=== PATIENT | female | born 1995 | race Caucasian/White ===

== ENCOUNTER 2020-03-16 17:39 | Inpatient (IN) ==
[2020-03-16] MEDS ORDERED: ONDANSETRON 4 MG TAB.RAPDIS PO PRN (18:17)
[2020-03-16] MEDS ORDERED: LIDOCAINE HCL 50 ML VIAL PERI PRN (18:17)
[2020-03-16] MEDS ORDERED: RINGER'S SOLUTION,LACTATED 1,000 ML IV ONE (18:17)
[2020-03-16] MEDS ORDERED: BUTORPHANOL TARTRATE 2 MG/ML VIAL IV PRN ×2 (18:17)
[2020-03-16] MEDS ORDERED: OXYTOCIN/0.9 % SODIUM CHLORIDE 30 UNITS/500 ML BAG IV ONE (18:17)
[2020-03-16] MEDS ORDERED: RINGER'S SOLUTION,LACTATED 1,000 ML IV PRN (18:17)
[2020-03-16] MEDS ORDERED: HYDROCORTISONE 30 APPL TUBE TP PRN (19:38)
[2020-03-16] MEDS: MISOPROSTOL 100 MCG TABLET VG PRN (19:58)
[2020-03-17] MEDS: MISOPROSTOL 100 MCG TABLET VG PRN (00:35)
[2020-03-17] MEDS ORDERED: INSULIN NPH HUMAN ISOPHANE 100 UNITS/ML VIAL ONE (00:59)
[2020-03-17] MEDS ORDERED: ONDANSETRON HCL/PF 2 MG/ML VIAL IV PRN ×2 (07:07→07:15)
[2020-03-17] MEDS ORDERED: NALOXONE HCL 1 MG/1 ML SYRG IV PRN ×2 (07:07→07:15)
[2020-03-17] MEDS ORDERED: BUPIVACAINE HCL/0.9 % NACL/PF 250 ML EP PRN ×2 (07:07→07:15)
[2020-03-17] MEDS ORDERED: fentaNYL CITRATE/PF 50 MCG/ML AMPUL IT SCH ×2 (07:15)
--- NOTE | 2020-03-17 07:26 | ANES ---
Anesthesia Pre Procedure Eval Vitals/Labs: Last Vital Signs Temp 36.3 C 03/16/20 20:42 Pulse 95 03/16/20 20:42 Resp 18 03/16/20 20:42 BP 117/58 03/16/20 20:42 Pulse Ox 97 03/16/20 20:42 HOME MEDICATIONS acetaminophen 325 mg capsule 325 mg PO Q6H PRN 07/30/19 [Last Taken Unknown] prenat.vits,willi,xqj-hadd-rwdqx 1 tab PO DAILY 09/29/19 [Last Taken Unknown] blood sugar diagnostic See Rx Instructions .ROUTE .MEDSUPPLY #100 ea 11/27/19 [Last Taken Unknown] blood-glucose meter See Rx Instructions .ROUTE .MEDSUPPLY #1 ea 11/27/19 [Last Taken Unknown] lancets 28 gauge See Rx Instructions .ROUTE .MEDSUPPLY #100 ea 11/27/19 [Last Taken Unknown] insulin syringe-needle U-100 1 mL 31 gauge x 5/16" See Rx Instructions [id number] .MEDSUPPLY #100 ea 12/30/19 [Last Taken Unknown] insulin NPH isoph U-100 human 100 unit/mL subcutaneous suspension 28 unit SUBCUT QPM ml 02/15/20 [Last Taken Unknown] clobetasol 0.05 % topical ointment 1 g TP TID #45 g 03/03/20 [Last Taken Unknown] Allergies/Adverse Reactions: Allergies Allergy/AdvReac Type Severity Reaction Status Date / Time No Known Allergies Allergy Verified 03/16/20 18:18 - Planned Procedure Planned Procedure: MEDICAL INDUCTION Medication List Reviewed:: Yes Allergies Verified: Yes Medical History (Last Reviewed 03/17/20 @ 07:25 by Amanuel Rodney CRNA) Anxiety Onset Date: ~2015 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, benign-removed 2011 Depression Onset Date: ~2015 GERD (gastroesophageal reflux disease) Onset Date: Unknown Gestational diabetes Onset Date: ~11/27/19 History of gestational diabetes Onset Date: ~2017 Ingrown toenail of both feet Onset Date: Unknown Migraines Onset Date: ~2015 Surgical History (Last Reviewed 03/17/20 @ 07:25 by Amanuel Rodney CRNA) No history of previous surgery Family History (Last Reviewed 03/17/20 @ 07:25 by Amanuel Rodney CRNA) Mother Alive and well Father Hypertension - Family Anesthesia History Family History:: no untoward family reactions to anesthesia, no familial bleeding tendencies, no family history of clotting disorders, no family history of premature - Airway/Neck/Teeth Within Normal Limits:: Yes Teeth Condition: intact Mallampatti Score: 2 Thyromental (T-M) distance: > 6 cm Mandibulo Hyoid distance: > 3 cm - Respiratory Respiratory Physical: lungs clear Sleep Apnea currently treated: No Sleep Apnea by current assessment: No - Cardiovascular Tolerate Activity: Fair Heart Sounds: S1 & S2, Regular - Gastrointestinal NPO since: 0 - Anesthesia Assessment and Plan ASA Class: PS, II, E Anesthesia Type Plan: Epidural - CSE for labor analgesia
--- NOTE | 2020-03-17 07:46 | ANES ---
Anesthesia Procedure Note Procedure Note: ANESTHESIA PROCEDURE NOTE Date of Procedure: 01/15/2021 Time of procedure: 7:25 AM. Performed by: BROOKLYN Dockery CRNA, MSN Bacteriologist Industrial: []. Preprocedure diagnosis: Active labor, labor pain. Post procedure diagnosis: Same. Procedure:Epidural for labor analgesia L3-4. Indications: Labor pain. Findings: See below. Details of the procedure: The patient was placed on the side of the bed in sitting positionand prepped with DuraPrep then draped in a sterile fashion. Lidocaine 1% was infiltrated to the skin and subcutaneous tissues at the level of the L3-4 interspace. An 18-gauge Touhy needle was used to approach the epidural space with loss of resistance technique. Once loss of resistance was achieved a 27-gauge spinal needle was passed through the epidural needle and CSF was contacted. After CSF returned, 20 mcg of fentanyl was injected in the spinal needle was removed the epidural catheter was then threaded approximately 4 cm in the epidural needle was removed. The catheter was taped in place and after careful aspiration 3 mL of 1.5% lidocaine with 1-200,000 epinephrine was injected without change in maternal heart rate or sensorium. . EBL: Minimal. Fluids: N/A. Specimen: N/A. Post procedure condition: The patient tolerated the procedure well with good relief. No complications were noted. Thank you for this consultation. Amanuel Rodney CRNA, ARNP, MSN
--- NOTE | 2020-03-17 07:47 | ANES ---
Post Anesthesia Discharge - Transfer of Care Transfer of Care handoff given to nurse: Yes - Discharge from PACU Discharge from PACU when meets criteria: Yes - Comfortable post CSE.
--- NOTE | 2020-03-17 08:04 | HP ---
Chief Complaint - Chief Complaint Date of Service: 03/17/20 Time of Service: 07:54 Chief Complaint: Labor induction History of Present Illness: 24 year old at 39w 1d who presented to L&D for a medical IOL. She denies vb or lof. She is not currently feeling her ctx s/p epidural placement. Fetus is active. 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, benign-removed 2011 Depression Onset Date: ~2015 GERD (gastroesophageal reflux disease) Onset Date: Unknown Gestational diabetes Onset Date: ~11/27/19 History of gestational diabetes Onset Date: ~2017 Ingrown toenail of both feet Onset Date: Unknown Migraines Onset Date: ~2015 Surgical History: Surgical History (Last Reviewed 03/17/20 @ 07:56 by Bessy Bailey MD) No history of previous surgery Family History: Family History (Last Reviewed 03/17/20 @ 07:56 by Bessy Bailey MD) Mother Alive and well Father Hypertension Social History: (Last Reviewed 03/17/20 @ 07:56 by Bessy Bailey MD) Social History: Marital status: Single household members: significant other current occupational status: employed current occupation: [employer] current occupational exposures/hazards: No Service: No Tobacco: Smoking Status: Never smoker Alcohol: alcohol intake: former details: none since LMP Substance Use: substance use type: does not use Dietary Habits: caffeine: Yes caffeine comment: 1 weekly Type: carbonated beverages Review Of Systems (GEN) - Review of Systems Generalized/Overall Review: Present: No Symptoms Reported Misc: All systems neg except as marked Allergies/Adverse Reactions: Allergies Allergy/AdvReac Type Severity Reaction Status Date / Time No Known Allergies Allergy Verified 03/16/20 18:18 Home Medications: HOME MEDICATIONS acetaminophen 325 mg capsule 325 mg PO Q6H PRN 07/30/19 [Last Taken Unknown] prenat.vits,willi,ulc-inlm-rxmvo 1 tab PO DAILY 09/29/19 [Last Taken Unknown] blood sugar diagnostic See Rx Instructions .ROUTE .MEDSUPPLY #100 ea 11/27/19 [Last Taken Unknown] blood-glucose meter See Rx Instructions .ROUTE .MEDSUPPLY #1 ea 11/27/19 [Last Taken Unknown] lancets 28 gauge See Rx Instructions .ROUTE .MEDSUPPLY #100 ea 11/27/19 [Last Taken Unknown] insulin syringe-needle U-100 1 mL 31 gauge x 07/17" See Rx Instructions [id number] .MEDSUPPLY #100 ea 12/30/19 [Last Taken Unknown] insulin NPH isoph U-100 human 100 unit/mL subcutaneous suspension 28 unit SUBCUT QPM ml 02/15/20 [Last Taken Unknown] clobetasol 0.05 % topical ointment 1 g TP TID #45 g 03/03/20 [Last Taken Unknown] Exam - Exam Vital Signs: Vital Signs - Last Taken Temp 36.3 C 03/16/20 20:42 Pulse 95 03/16/20 20:42 Resp 18 03/16/20 20:42 BP 117/58 03/16/20 20:42 Pulse Ox 97 03/16/20 20:42 Constitutional: Present: Alert, Oriented x3, Cooperative, No distress ENT Exam: Present: hearing grossly normal Eye Exam: bilateral eye: normal inspection Neck: Present: normal inspection Back Exam: Present: normal inspection Breasts: Present: Exam deferred Respiratory: Present: lungs clear, normal breath sounds, no respiratory distress Cardiovascular/Chest: Present: regular rate, rhythm Abdomen: Present: soft, nontender, nondistended /Rectal: Present: Other - 3-4/50/-1 AROM for clear fluid Extremity: Present: non-tender, no calf tenderness Skin Exam: Present: normal color, warm/dry, no cyanosis Neurologic: Present: alert, normal mood/affect, oriented x 3 Appearance: Present: appropriate appearance, appropriate insight, neat, no memory impairment Eye contact: Present: cooperative, good eye contact, normal speech Thoughts: Present: normal thought pattern Diagnostic Studies: Laboratory Results Blood Type O Positive 03/16/20 18:25 Antibody Screen Negative 03/16/20 18:25 Assessment/Plan - Narrative Narrative: 24 year old at 39w 1d 1. GDM: FSBS normal on admission, the patient received her dose of evening NPH. FBS was normal this morning. No further need for monitoring since only FBS were abnormal for the patient. The patient received cytotec x2 overnight. AROM done for augmentation. Will start pitocin at 1 milliunit/minute. 2. GBS negative 3. FHT with evidence of possible arrhythmia. Pediatrics to assess baby after delivery. Otherwise FHT is cat 1 - Assessment/Plan (1) Encounter for planned induction of labor Problem: Acute (2) 39 weeks gestation of Problem: Acute (3) Gestational diabetes Problem: Acute Qualifiers: Gestational diabetes mellitus control: insulin-controlled Trimester: third trimester Qualified Code(s): O24.414 - Gestational diabetes mellitus in , insulin controlled (4) Rh(D) positive Problem: Acute (5) Normal Pap smear Problem: Acute
--- NOTE | 2020-03-17 08:06 | ANES ---
Post Anesthesia Assessment - Vital Signs Vitals: Last Vital Signs Temp 36.3 C 03/16/20 20:42 Pulse 95 03/16/20 20:42 Resp 18 03/16/20 20:42 BP 117/58 03/16/20 20:42 Pulse Ox 97 03/16/20 20:42 Airway Patency: Normal - Mental Status Level Of Consciousness: Awake, Alert, Appropriate - Pain Level Pain Score: 0 - N/V Assessment Nausea/Vomiting Presence: None Dehydration:: No
--- NOTE | 2020-03-17 17:31 | OR ---
Operative Report - Dictated Report Narrative: Date of delivery: 03/17/20 Time of delivery: 1710 Gender: male weight: 3464 grams APGARS: 8/9 Procedure: Description of the procedure: The patient is a 24 year old at 39w 1d who presented to L&D for a medical IOL due to gestational diabetes insulin-co ntrolled. She progressed to complete dilation. The patient delivered a viable male infant in MORIS presentation. The head was at the perineum for a short period of time secondary to lack of contractions. Once the head delivered the shoulders delivered without any difficulty followed by the rest of the . Cord clamping was delayed for 60 seconds due to vigorous infant. The cord was clamped and cut. Cord blood was collected. The placenta delivered by expression and appeared intact. A second degree perineal laceration was repaired using 3-0 rapide. EBL: 50 mL Complications: none Specimens: cord blood History for Definition: * The number of deliveries resulting in a live the patient experienced prior to current hospitalization * The previous delivery of live twins or any live multiple gestation is considered one live event. *If primagravida or nulliparous is documented select zero for the number of previous live births. Live Events: 1
[2020-03-17] MEDS ORDERED: BENZOCAINE/MENTHOL 81 SPRAY CAN TP PRN (18:13)
[2020-03-17] MEDS ORDERED: HYDROCORTISONE 30 APPL TUBE TP PRN (18:13)
[2020-03-17] MEDS ORDERED: BISACODYL 10 MG SUPP.RECT RC PRN (18:13)
[2020-03-17] MEDS ORDERED: SENNOSIDES 8.6 MG TABLET PO PRN (18:13)
[2020-03-17] MEDS ORDERED: HYDROcodone/ACETAMINOPHEN 1 EACH TABLET PO PRN (18:13)
[2020-03-17] MEDS ORDERED: diphenhydrAMINE HCL 25 MG CAPSULE PO PRN (18:13)
[2020-03-17] MEDS ORDERED: GLYCERIN/WITCH HAZEL LEAF 40 APPL BOX TP PRN (18:13)
[2020-03-17] MEDS ORDERED: OXYTOCIN/0.9 % SODIUM CHLORIDE 30 UNITS/500 ML BAG IV ONE (18:13)
[2020-03-17] MEDS ORDERED: IBUPROFEN 800 MG TABLET ONE (19:15)
[2020-03-17] MEDS: IBUPROFEN 800 MG TABLET PO PRN (19:17)
[2020-03-17] MEDS: HYDROcodone/ACETAMINOPHEN 1 EACH TABLET PO PRN (20:49)
[2020-03-17] MEDS ORDERED: INSULIN NPH HUMAN ISOPHANE 100 UNITS/ML VIAL SC SCH (21:00)
[2020-03-17] MEDS: DOCUSATE SODIUM 100 MG CAPSULE PO SCH (23:29)
[2020-03-18] MEDS: HYDROcodone/ACETAMINOPHEN 1 EACH TABLET PO PRN ×3 (02:05→14:59)
[2020-03-18] MEDS: IBUPROFEN 800 MG TABLET PO PRN ×2 (05:36→15:00)
--- NOTE | 2020-03-18 06:02 | PN ---
Subjective - Date and Time Seen Date: 03/18/20 Time: 06:00 Subjective Narrative: Patient without complaints Objective Objective Narrative: See vital signs - Review of Systems Generalized/Overall Review: Reports: No Symptoms Reported Misc: All systems neg except as marked - Vitals Vitals: Last Vital Signs Temp 36.6 C 03/18/20 02:00 Pulse 92 03/18/20 02:00 Resp 18 03/18/20 02:00 BP 118/71 03/18/20 02:00 Pulse Ox 96 03/18/20 02:00 - Exam Constitutional: Present: Alert, Oriented x3, Cooperative, No distress ENT Exam: Present: hearing grossly normal Neck: Present: normal inspection Abdomen: Present: soft, nontender, nondistended - fundus is firm Extremity: Present: non-tender, no calf tenderness Skin Exam: Present: normal color, warm/dry, no cyanosis Neurologic: Present: alert, normal mood/affect, oriented x 3 Appearance: Present: appropriate appearance, appropriate insight, neat, no memory impairment Eye contact: Present: cooperative, good eye contact, normal speech Thoughts: Present: normal thought pattern Cauti Physician Documentation - Urinary Catheter Management Urethral (Abdullahi) Urethral Indwelling: No Date of Insertion: 03/17/20 Time of Insertion: 08:00 Date of Removal: 03/17/20 Time of Removal: 17:00 Assessment/Plan Plan Narrative: PPD 1 s/p Doing well Discharge today if baby cleared for discharge - Problems/Diagnosis (1) Encounter for planned induction of labor Problem: Acute (2) 39 weeks gestation of Problem: Acute (3) Gestational diabetes Problem: Acute Qualifiers: Gestational diabetes mellitus control: insulin-controlled Trimester: third trimester Qualified Code(s): O24.414 - Gestational diabetes mellitus in , insulin controlled (4) Rh(D) positive Problem: Acute (5) Normal Pap smear Problem: Acute
--- NOTE | 2020-03-18 06:04 | DS ---
OB Discharge Summary (1) Encounter for planned induction of labor Status: Acute (2) 39 weeks gestation of Status: Acute (3) Gestational diabetes Status: Acute Qualifiers: Gestational diabetes mellitus control: insulin-controlled Trimester: third trimester Qualified Code(s): O24.414 - Gestational diabetes mellitus in , insulin controlled (4) Rh(D) positive Status: Acute (5) Normal Pap smear Status: Acute Delivery Date: 03/17/20 Delivery Time: 17:10 :: 2 Para:: 2 Gestational weeks:: 39 Gestational days:: 1 Intrapartum Procedures: Spontaneous Vaginal Delivery, Anesthesia - Epidural Procedures: None /OP Complications: GDM, Perineal Laceration Discharge Diagnosis: Term -Delivered, GDM - Insulin Dependent - Discharge Information Date of Discharge: 03/18/20 Discharge Location: Home Disposition: Home self-care Activity on Discharge:: Activity as tolerated, Pelvic Rest Discharge Diet: General/regular food Complete Home Medications List: Complete Home Medication List: acetaminophen 325 mg capsule 325 mg PO Q6H PRN 07/30/19 clobetasol 0.05 % topical ointment 1 g TP TID #45 g 03/03/20 - Plan Discharge to:: Home Comment:: Routine Discharge Instructions Follow up in office in:: Other - 4 weeks - Information Weight (Grams): 3,464 Infant Sex: Male Score 1 min: 8 Score 5 min: 9 Complications: None
[2020-03-18 07:58] VITALS: BP 102/56
[2020-03-18] MEDS: DOCUSATE SODIUM 100 MG CAPSULE PO SCH (10:40)
== END 2020-03-18 18:40 | disposition home or self-care (01) | DRG 807 ==
LOC: OB 17:39
PROVIDERS: ADMIT Obstetrics & Gynecology; ATTEND Obstetrics & Gynecology